=== PATIENT | male | born 1985 | race Caucasian/White ===

== ENCOUNTER 2018-08-13 22:24 | Emergency (ER) | payer SELFPAY ==
[~2018-08-13] VITALS: Ht 165.1 cm; Wt 91.2 kg
[2018-08-13 22:24] VITALS: BP 118/59
--- NOTE | 2018-08-13 22:24 | NUR ---
PATIENT BIB [facility] TO ER CHAIR M[facility]
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
--- NOTE | 2018-08-13 22:26 | NUR ---
PATIENT BEING EVALUATED BY DR. SAM.
--- NOTE | 2018-08-13 22:30 | NUR ---
PATIENT TAKEN TO XRAY WITH TECH AND DIEGOP.
[2018-08-13 22:41] VITALS: BP 128/82
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
== END 2018-08-13 22:41 ==
LOC: MED 22:24
DX: Z04.1 Encounter for examination and observation following transport accident (principal)
CPT/HCPCS: 71045; 99283